=== PATIENT | male | born 1960 | race Caucasian/White ===

== ENCOUNTER → 2016-03-11 | Outpatient (CLI) | payer BC ==
[2016-03-11 16:19] VITALS: BP 163/94; PULSE 71; RESP 16; TEMP 96.6; BMI 54.3
--- NOTE | 2016-03-29 17:20 | P.PN ---
Progress Note - Text DATE OF SERVICE: 03/11/2016 CHIEF COMPLAINT: Bariatric assessment. HISTORY OF PRESENT ILLNESS: Agnieszka Marquez is a 55-year-old gentleman who initially presented to the bariatric program in December 2015. At his height of 6 feet and 1/4 inch he came in weighing 399 pounds. Today, he is now up to 402 pounds. His body mass index is 54.3. He has undergone evaluation with his medical provider. He has multiple comorbidities, including obstructive sleep apnea, heart disease, hypertension, osteoarthritis of the bilateral legs including neuropathy secondary to his morbid obesity. The [place] bariatric surgical collaborative was reviewed in detail for which he has elected for a sleeve gastrectomy. He had completed an upper endoscopy consistent with Hill grade 4 lower esophageal valve include 4 cm diaphragmatic hiatal hernia. He now presents for further evaluation for surgical procedures. PAST MEDICAL HISTORY: 1. Morbid obesity. 2. Hypertension. 3. Neuropathy. 4. Gastroesophageal reflux disease. 5. Obstructive sleep apnea. 6. Bilateral lower extremity edema. 7. Osteoarthritis of the lower back. PAST SURGICAL HISTORY: 1. Right knee arthroscopy. 2. Upper endoscopy. MEDICATIONS: 1. Norvasc. 2. Lyrica. 3. Protonix. 4. Losartan-hydrochlorothiazide. 5. Lasix. ALLERGIES: Denies. SOCIAL HISTORY: Lifelong nontobacco user. Prior history of alcoholism. FAMILY HISTORY: Pertinent for morbid obesity. REVIEW OF SYSTEMS: CONSTITUTIONAL: [place] body weight of 183 pounds. Present weight of 402 pounds. Body mass index of 54.3. NEURO: No reports of stroke or seizure disorder. He has bilateral neuropathy with increase of Lyrica to at least 200 mg daily. GASTROINTESTINAL: History of gastroesophageal reflux disease including diaphragmatic hiatal hernia which is cautiously reviewed with the patient regarding bariatric options. HEENT: No reports of troubles with vision or hearing. No reports of dysphagia. No reports of diabetes. No reports of thyroid disorder. RESPIRATORY: History of obstructive sleep apnea. No recent asthma. CARDIOVASCULAR: History of hypertension. He has history of hypercholesterolemia. MUSCULOSKELETAL: Osteoarthritis of the lower back and legs. He also has bilateral lower extremity edema, right greater left. PSYCH: No reports of depression or suicidal ideation. HEMATOLOGIC: No reports of easy bruising or bleeding. PHYSICAL EXAM: VITAL SIGNS: 96.6, 71, 16, 163/94, 6 foot and 1/4 inch, 402 pounds. Body mass index 54.3. GENERAL: Well-developed male in no acute distress. HEENT: No scleral icterus. Extraocular movements grossly intact. Moist mucosa. NECK: Supple without lymphadenopathy. CHEST: Nonlabored respirations with equal bilateral excursions. CARDIOVASCULAR: Regular rate and rhythm. ABDOMEN: Soft, nontender, nondistended. MUSCULOSKELETAL: Has right lower extremity edema 1+. Trace pitting edema of left leg. NEURO: No focal or lateralizing signs. Cranial nerves II through XII grossly within normal limits. PSYCH: Appropriate affect. Alert and oriented to person, place, and time. ASSESSMENT: 1. Morbid obesity due to excess calories. 2. Body mass index of 54.3. 3. Right lower extremity edema. 4. Bilateral lower extremity neuropathy. 5. Obstructive sleep apnea. 6. Hypertension. 7. Prior history of alcoholism. 8. Gastroesophageal reflux disease. 9. Dietary counseling. 10. Diaphragmatic hiatal hernia. PLAN: 1. I have gone over benefits and risks versus surgical intervention for which he has elected for a sleeve gastrectomy. 2. A second generation bariatric consent form was reviewed in detail including potential for leaks, gastric stenosis and severe gastroesophageal disease postoperatively. Medical management with antacids were also reviewed including potential corrective surgical procedure which he demonstrated understanding. 3. Recommend 2-week high protein, low-caloric diet to address underlying hepatomegaly. 4. Inpatient hospitalization anticipated for approximately 2 nights. 5. Deep venous thrombosis prophylaxis. 6. Antibiotic prophylaxis. 7. Postoperative recovery at minimum for 4 weeks was described to the patient. He demonstrated understanding. 8. Will need CPAP machine while admitted.
== END | disposition home or self-care (01) ==
LOC: BARWHC3 14:56
PROVIDERS: ATTEND Surgery Plastic and Reconstructive Surgery
DX: Z01.818 Encounter for other preprocedural examination (principal); E66.01 Morbid (severe) obesity due to excess calories; Z68.43 Body mass index [BMI] 50.0-59.9, adult; G47.33 Obstructive sleep apnea (adult) (pediatric); K21.9 Gastro-esophageal reflux disease without esophagitis; K44.9 Diaphragmatic hernia without obstruction or gangrene; Z79.899 Other long term (current) drug therapy
CPT/HCPCS: 99211

== ENCOUNTER → 2016-03-16 | Outpatient (CLI) | payer BC ==
[2016-03-16 13:04] VITALS: BMI 53.1
== END | disposition home or self-care (01) ==
LOC: BARWHC3 08:53
PROVIDERS: ATTEND Surgery Plastic and Reconstructive Surgery
DX: E66.01 Morbid (severe) obesity due to excess calories (principal); Z71.3 Dietary counseling and surveillance
CPT/HCPCS: 97804

== ENCOUNTER → 2016-03-30 | Outpatient (CLI) | payer BC ==
[2016-03-30 15:50] LABS: Basophils # (A) 0.1 k/uL (0-0.2); Basophils % (A) 1 %; CHCM 34.8; Eosinophils # (A) 0.1 k/uL (0-0.7); Eosinophils % (A) 1 %; HCT 45.5 % (39.0-53.0); HDW 2.86; HGB 15.3 gm/dL (13.0-17.5); Luc # (Auto) 0.34; Luc % (Auto) 3; Lymphocytes # (A) 2.4 k/uL (1.0-4.8); Lymphocytes % (A) 22 %; MCHC 33.5 g/dL (31.0-37.0); MCV 86.5 fL (80.0-100.0); Monocytes # (A) 0.8 k/uL (0-1.0); Monocytes % (A) 7 %; Neutrophils # (A) 7.2 k/uL (1.3-7.7); Neutrophils % (A) 67 %; RBC 5.26 m/uL (4.30-5.90); RDW 13.4 % (11.5-15.5); WBC 10.8 k/uL (3.8-10.6); WBC (Perox) 10.39
[2016-03-30 16:01] LABS: ALT 44 U/L (21-72); AST 24 U/L (17-59); Alkaline Phosphatase 91 U/L (38-126); Anion Gap 14 mmol/L; Blood Urea Nitrogen 28 mg/dL (9-20); Calcium 10.4 mg/dL (8.4-10.2); Carbon Dioxide 28 mmol/L (22-30); Chloride 98 mmol/L (98-107); Glucose 106 mg/dL (74-99); Non-African American GFR(MDRD) >60 (>60 ml/min/1.73 sqM); Potassium 4.4 mmol/L (3.5-5.1); Sodium 140 mmol/L (137-145); Total Protein 8.6 g/dL (6.3-8.2)
== END | disposition home or self-care (01) ==
LOC: LABWHC1 15:22
PROVIDERS: ATTEND Surgery Plastic and Reconstructive Surgery
DX: Z01.812 Encounter for preprocedural laboratory examination (principal)
CPT/HCPCS: 36415; 80053; 85025

== ENCOUNTER 2016-04-06 11:10 | Inpatient (IN) | payer BC ==
--- NOTE | 2016-04-06 06:28 | P.GSHP ---
History of Present Illness H&P Date: 04/06/16 CHIEF COMPLAINT: Bariatric assessment. HISTORY OF PRESENT ILLNESS: Agnieszka Marquez is a 55-year-old gentleman who initially presented to the bariatric program in December 2015. At his height of 6 feet and 1/4 inch he came in weighing 399 pounds. Today, he is now up to 402 pounds. His body mass index is 53.4. He has undergone evaluation with his medical provider. He has multiple comorbidities, including obstructive sleep apnea, heart disease, hypertension, osteoarthritis of the bilateral legs including neuropathy secondary to his morbid obesity. The [place] bariatric surgical collaborative was reviewed in detail for which he has elected for a sleeve gastrectomy. He had completed an upper endoscopy consistent with Hill grade 4 lower esophageal valve including 4 cm diaphragmatic hiatal hernia. He now presents for surgical intervention. PAST MEDICAL HISTORY: 1. Morbid obesity. 2. Hypertension. 3. Neuropathy. 4. Gastroesophageal reflux disease. 5. Obstructive sleep apnea. 6. Bilateral lower extremity edema. 7. Osteoarthritis of the lower back. PAST SURGICAL HISTORY: 1. Right knee arthroscopy. 2. Upper endoscopy. MEDICATIONS: 1. Norvasc. 2. Lyrica. 3. Protonix. 4. Losartan-hydrochlorothiazide. 5. Lasix. ALLERGIES: Denies. SOCIAL HISTORY: Lifelong nontobacco user. Prior history of alcoholism. FAMILY HISTORY: Pertinent for morbid obesity. REVIEW OF SYSTEMS: CONSTITUTIONAL: [place] body weight of 183 pounds. Present weight of 402 pounds. Body mass index of 53.4. NEURO: No reports of stroke or seizure disorder. He has bilateral neuropathy with increase of Lyrica to at least 200 mg daily. GASTROINTESTINAL: History of gastroesophageal reflux disease including diaphragmatic hiatal hernia which is cautiously reviewed with the patient regarding bariatric options. HEENT: No reports of troubles with vision or hearing. No reports of dysphagia. No reports of diabetes. No reports of thyroid disorder. RESPIRATORY: History of obstructive sleep apnea. No recent asthma. CARDIOVASCULAR: History of hypertension. He has history of hypercholesterolemia. MUSCULOSKELETAL: Osteoarthritis of the lower back and legs. He also has bilateral lower extremity edema, right greater left. PSYCH: No reports of depression or suicidal ideation. HEMATOLOGIC: No reports of easy bruising or bleeding. PHYSICAL EXAM: VITAL SIGNS: 96.6, 71, 16, 163/94, 6 foot and 1/4 inch, 402 pounds. Body mass index 53.4 GENERAL: Well-developed male in no acute distress. HEENT: No scleral icterus. Extraocular movements grossly intact. Moist mucosa. NECK: Supple without lymphadenopathy. CHEST: Nonlabored respirations with equal bilateral excursions. CARDIOVASCULAR: Regular rate and rhythm. ABDOMEN: Soft, nontender, nondistended. MUSCULOSKELETAL: Has right lower extremity edema 1+. Trace pitting edema of left leg. NEURO: No focal or lateralizing signs. Cranial nerves II through XII grossly within normal limits. PSYCH: Appropriate affect. Alert and oriented to person, place, and time. ASSESSMENT: 1. Morbid obesity due to excess calories. 2. Body mass index of 53.4. 3. Right lower extremity edema. 4. Bilateral lower extremity neuropathy. 5. Obstructive sleep apnea. 6. Hypertension. 7. Prior history of alcoholism. 8. Gastroesophageal reflux disease. 9. Dietary counseling. 10. Diaphragmatic hiatal hernia. PLAN: 1. I have gone over benefits and risks of all surgical procedures including, gastric bypass, sleeve, band for surgical intervention for which he has elected for a sleeve gastrectomy. 2. A second generation bariatric consent form was reviewed in detail including potential for leaks, gastric stenosis and severe gastroesophageal reflux disease postoperatively. Medical management with antacids were also reviewed including potential corrective surgical procedure which he demonstrated understanding. 3. Recommend 2-week high protein, low-caloric diet to address underlying hepatomegaly. 4. Inpatient hospitalization anticipated for approximately 2 nights. 5. Deep venous thrombosis prophylaxis. 6. Antibiotic prophylaxis. 7. Postoperative recovery at minimum for 4 weeks was described to the patient. He demonstrated understanding. 8. Will need CPAP machine while admitted. Past Medical History Past Medical History: GERD/Reflux, Hypertension, Neurologic Disorder, Sleep Apnea/CPAP/BIPAP Additional Past Medical History / Comment(s): neuropathy of feet, heart [place], small hiatal hernia, History of Any Multi-Drug Resistant Organisms: MRSA Date of last positivie culture/infection: 1996 approx MDRO Source:: under rt arm Past Surgical History: Orthopedic Surgery, Tonsillectomy Additional Past Surgical History / Comment(s): right knee arthroscopy, ganglion cyst rt wrist Past Anesthesia/Blood Transfusion Reactions: Family History of Problems w/ Anesthesia Additional Past Anesthesia/Blood Transfusion Reaction / Comment(s): mother has diff coming out Past Psychological History: No Psychological Hx Reported Smoking Status: Never smoker Past Alcohol Use History: None Reported Past Drug Use History: None Reported - Past Family History Mother Family Medical History: No Reported History Father Family Medical History: No Reported History Medications and Allergies Home Medications Medication Instructions Recorded Confirmed Type Losartan/Hydrochlorothiazide 1 each PO QAM 01/14/16 03/31/16 History [Losartan-Hctz 100-25 mg Tab] Pantoprazole Sodium [Protonix] 40 mg PO DAILY 01/14/16 03/31/16 History Pregabalin [Lyrica] 100 mg PO TID 01/14/16 03/31/16 History amLODIPine [Norvasc] 2.5 mg PO QAM 01/14/16 03/31/16 History Allergies Allergy/AdvReac Type Severity Reaction Status Date / Time No Known Allergies Allergy Verified 03/31/16 09:25
[~2016-04-06 11:10] MED LIST: ACETAMINOPHEN IV (For NPO) 1,000 MG in EMPTY BAG 1 BAG IVPB ONE; BUPIVACAINE LIPOSOME/PF 1.3% 20 ML, BUPIVACAIN-EPI 0.5%-1:200,000 25 ML, SODIUM CHLORID... MISCELLANE ONE; CHLORHEXIDINE GLUCONATE 15 ML CUP MUCOUS MEM ONE; DEXAMETHASONE SOD PHOSPHATE 10 MG/ML 1 ML VIAL IV ONE; ENOXAPARIN 40 MG/0.4 ML SYRINGE SQ STA; LIDOCAINE 1% 20 ML VIAL (10MG/ML) FOR IV START INTRADERMA PRN; ONDANSETRON 4 MG/2 ML VIAL IVP ONE; PANTOPRAZOLE 40 MG/10 ML VIAL IV STA; SCOPOLAMINE 1.5MG/72HR PATCH TRANSDERM ONE; ceFAZolin 3 GM in SODIUM CHLORIDE 0.9% 100 ML IVPB ONE
[2016-04-06 11:32] VITALS: RESP 16
[2016-04-06] MEDS: LACTATED RINGERS 1,000 ML IV SCH ×2 (11:33→19:13)
[2016-04-06] MEDS ORDERED: DEXAMETHASONE SOD PHOSPHATE 10 MG/ML 1 ML VIAL IV ONE (11:36)
[2016-04-06] MEDS ORDERED: ONDANSETRON 4 MG/2 ML VIAL IVP ONE (11:37)
[2016-04-06] MEDS ORDERED: CHLORHEXIDINE GLUCONATE 15 ML CUP MUCOUS MEM ONE (11:58)
[2016-04-06] MEDS ORDERED: MIDAZOLAM 2 MG/2 ML VIAL IV ONE (12:25)
[2016-04-06] MEDS ORDERED: LIDOCAINE 1% INJ 10MG/ML (20 ML MDV) ONE (14:42)
[2016-04-06] MEDS ORDERED: KETOROLAC 30 MG/ML 1 ML VIAL ONE (14:42)
[2016-04-06] MEDS ORDERED: HYDROmorphone (PF) 1 MG/ML ONE (14:42)
[2016-04-06] MEDS ORDERED: fentaNYL (PF) 50 MCG/ML 2 ML AMP ONE (14:42)
[2016-04-06] MEDS ORDERED: PROPOFOL 10 MG/ML 20 ML VIAL IV ONE (14:42)
[2016-04-06] MEDS ORDERED: ROCURONIUM BROMIDE 10 MG/ML 10 ML VIAL IV ONE (14:42)
[2016-04-06] MEDS ORDERED: GLYCOPYRROLATE 0.2 MG/ML 2 ML VIAL ONE (14:42)
[2016-04-06] MEDS ORDERED: NEOSTIGMINE 1 MG/ML 10 ML VIAL ONE (14:42)
[2016-04-06] MEDS ORDERED: SUCCINYLCHOLINE CHLORIDE 100 MG/5 ML SYR IV ONE (14:42)
[2016-04-06] MEDS ORDERED: MIDAZOLAM 2 MG/2 ML VIAL ONE (14:42)
[2016-04-06] MEDS ORDERED: LACTATED RINGERS 1,000 ML IV ONE (15:52)
[2016-04-06] MEDS ORDERED: ONDANSETRON 4 MG/2 ML VIAL IVP PRN (17:24)
[2016-04-06] MEDS ORDERED: NALOXONE 0.4 MG/ML 1 ML VIAL IV PRN (17:24)
[2016-04-06] MEDS ORDERED: SIMETHICONE 40 MG/0.6 ML DROPS 2,000 MG/30 ML BOTTLE PO PRN (17:24)
[2016-04-06] MEDS ORDERED: HYOSCYAMINE ORAL DROPS 1.875 MG/15 ML BOTTLE PO PRN (17:24)
[2016-04-06] MEDS ORDERED: diphenhydrAMINE 50 MG/ML 1 ML VIAL IVP PRN (17:24)
--- NOTE | 2016-04-06 17:24 | P.PCN ---
Date of Procedure: 04/06/16 Preoperative Diagnosis: Morbid obesity Postoperative Diagnosis: Morbid obesity Procedure(s) Performed: Laparoscopic sleeve gastrectomy, intraoperative esophagogastroduodenoscopy Anesthesia: GETA, local Surgeon: Araseli Cheng Estimated Blood Loss (ml): 25 Pathology: other (Sleeve gastrectomy) Condition: stable Disposition: floor Operative Findings: No prominent hiatal defects along anterior-posterior hiatus. Staple used to include 60 mm 3 black loads, 2 purple loads, and 1 - 45 bautista load. Intraoperative EGD confirmed no leak or encroachment along the angularis incisura.
[2016-04-06] MEDS: HYDROmorphone 1 MG/ML 1 ML SYRINGE IVP PRN ×3 (17:55→21:46)
[2016-04-06] MEDS ORDERED: ACETAMINOPHEN IV (For NPO) 1,000 MG in EMPTY BAG 1 BAG IVPB ONE (18:00)
[2016-04-06 19:18] VITALS: BMI 51.6
[2016-04-06] MEDS: 0.9% NACL WITH KCL 20 MEQ/L 1,000 ML IV SCH ×2 (19:22→23:22)
[2016-04-06] MEDS: ALBUTEROL NEBULIZED 2.5 MG/3 ML INHALATION SCH (20:36)
[2016-04-07] MEDS: HYDROcodone/APAP 15 ML SOLUTION PO PRN ×3 (01:53→14:34)
[2016-04-07] MEDS: HYDROmorphone 1 MG/ML 1 ML SYRINGE IVP PRN (05:46)
[2016-04-07] MEDS ORDERED: 1: MVI, ADULT NO.4 WITH VIT K 10 ML, THIAMINE 100 MG, FOLIC ACID 1 MG, POTASSIUM CHLORID IV SCH ×6 (08:00)
[2016-04-07 08:58] LABS: Basophils % (A) 0 %; CH 30.2; CHCM 34.6; Eosinophils % (A) 0 %; HCT 36.8 % (39.0-53.0); HDW 2.73; HGB 12.5 gm/dL (13.0-17.5); Luc # (Auto) 0.24; Luc % (Auto) 2; Lymphocytes # (A) 0.9 k/uL (1.0-4.8); Lymphocytes % (A) 8 %; MCH 29.6 pg (25.0-35.0); MCHC 33.9 g/dL (31.0-37.0); MCV 87.4 fL (80.0-100.0); Mean Platelet Volume 7.4; Monocytes # (A) 0.6 k/uL (0-1.0); Monocytes % (A) 5 %; Neutrophils # (A) 9.8 k/uL (1.3-7.7); Neutrophils % (A) 85 %; RBC 4.21 m/uL (4.30-5.90); RDW 12.8 % (11.5-15.5); WBC 11.6 k/uL (3.8-10.6); WBC (Perox) 12.33
[2016-04-07] MEDS ORDERED: amLODIPine 2.5 MG TAB PO SCH (09:00)
[2016-04-07] MEDS ORDERED: ENOXAPARIN 60 MG/0.6 ML SYRINGE SQ SCH (09:00)
[2016-04-07] MEDS ORDERED: LOSARTAN-HCTZ 50-12.5 MG 1 EACH TAB PO SCH (09:00)
[2016-04-07] MEDS ORDERED: PANTOPRAZOLE 40 MG/10 ML VIAL IV SCH (09:00)
[2016-04-07 09:04] LABS: Anion Gap 12 mmol/L; Blood Urea Nitrogen 36 mg/dL (9-20); Carbon Dioxide 27 mmol/L (22-30); Chloride 102 mmol/L (98-107); Magnesium 2.2 mg/dL (1.6-2.3); Non-African American GFR(MDRD) 55 (>60 ml/min/1.73 sqM); Phosphorous 4.9 mg/dL (2.5-4.5); Potassium 4.5 mmol/L (3.5-5.1); Sodium 141 mmol/L (137-145)
[2016-04-07] MEDS: ALBUTEROL NEBULIZED 2.5 MG/3 ML INHALATION SCH ×3 (09:26→15:57)
--- NOTE | 2016-04-07 09:31 | P.PN ---
Subjective Principal diagnosis: Morbid obesity The patient is postop day 1 status post sleeve gastrectomy. He is doing well. He is tolerating meds. No reports of nausea and vomiting. No reports of fevers or chills. Also he is tolerating diet. Objective - Vital Signs Vital signs: Vital Signs Temp 98.7 F 04/07/16 08:06 Pulse 78 04/07/16 08:06 Resp 16 04/07/16 08:06 BP 143/82 04/07/16 08:06 Pulse Ox 92 L 04/07/16 08:06 Intake & Output 04/06/16 04/07/16 04/07/16 18:59 06:59 18:59 Intake Total 1750 Output Total 25 1050 Balance 1725 -1050 Weight 175.1 kg 175.1 kg Intake: IV 1750 Output: Urine 1050 Estimated Blood Loss 25 Other: Voiding Method Toilet Urinal # Voids 2 - Exam GENERAL: Well developed and in no acute distress. Pleasant. HEENT: No sclera icterus. Extraocular movements grossly intact. Moist buccal mucosa. Head is atraumatic, normocephalic. Hears conversational speech. No nasal drainage. NECK: Supple without lymphadenopathy. No JV distention. CHEST: Non-labored respirations and equal bilateral excursions. CARDIOVASCULAR: Regular rate and rhythm. Palpable 2+ radial pulses. ABDOMEN: Soft. Dressings clean dry and intact. Minimal abdominal tenderness along the incision, right upper quadrant. MUSCULOSKELETAL: No clubbing, cyanosis. NEUROLOGIC: No focal or lateralizing signs. PSYCH: Appropriate affect. Alert and oriented to person, place and time. - Labs CBC & Chem 7: 04/07/16 07:55 04/07/16 07:55 Labs: Abnormal Lab Results - Last 24 Hours (Table) 04/07/16 04/07/16 Range/Units 07:55 07:55 WBC 11.6 H (3.8-10.6) k/uL RBC 4.21 L (4.30-5.90) m/uL Hgb 12.5 L (13.0-17.5) gm/dL Hct 36.8 L (39.0-53.0) % Neutrophils # 9.8 H (1.3-7.7) k/uL Lymphocytes # 0.9 L (1.0-4.8) k/uL BUN 36 H (9-20) mg/dL Creatinine 1.33 H (0.66-1.25) mg/dL Phosphorus 4.9 H (2.5-4.5) mg/dL Assessment and Plan (1) BMI 50.0-59.9, adult Status: Chronic (2) Gastroesophageal reflux disease Status: Chronic (3) S/P laparoscopic sleeve gastrectomy Status: Acute (4) Sleep apnea Status: Chronic (5) Hypertension Status: Chronic (6) Hypertensive heart disease Status: Chronic (7) Morbid obesity Status: Chronic Plan: 1. He is doing well. He may be discharged home. 2. Discharge bariatric diet including medical reconciliation was completed. 3. Follow-up at the bariatric center in 2 - 4 days.
[2016-04-07] MEDS: 0.9% NACL WITH KCL 20 MEQ/L 1,000 ML IV SCH (11:29)
[2016-04-07 14:30] VITALS: BP 121/72; PULSE 72; TEMP 98
[2016-04-07] MEDS ORDERED: PREGABALIN 100 MG CAP PO SCH (16:00)
[2016-04-08] MEDS ORDERED: BISACODYL 5 MG TABLET.DR PO PRN (08:00)
--- NOTE | 2016-04-08 09:16 | P.DS ---
Providers Date of admission: 04/06/16 11:10 Expected date of discharge: 04/07/16 Attending physician: Araseli Cheng Primary care physician: Antwan Akhtar - Discharge Diagnosis(es) (1) S/P laparoscopic sleeve gastrectomy Status: Acute (2) BMI 50.0-59.9, adult Status: Chronic (3) Gastroesophageal reflux disease Status: Chronic (4) Hypertension Status: Chronic (5) Hypertensive heart disease Status: Chronic (6) Morbid obesity Status: Chronic (7) Sleep apnea Status: Chronic Hospital Course: The patient was admitted for morbid obesity surgery. He completed a bariatric evaluation. He elected for a sleeve gastrectomy. Postoperatively, he was tolerating diet. His pain was well-controlled. Discharge bariatric instructions including diet were reviewed. He was stable prior to discharge. Follow-up in bariatric center in 4 days. Pertinent Studies: None. Procedures: 1. Laparoscopic sleeve gastrectomy. 2. Intraoperative esophagogastroduodenoscopy. Patient Condition at Discharge: Stable Plan - Discharge Summary New Discharge Prescriptions: HYDROcodone/APAP 5-325MG [[place] 5-325] 1 - 2 tab PO Q6HR PRN #60 tab PRN Reason: Pain Discharge Medication List Pantoprazole Sodium [Protonix] 40 mg PO DAILY 01/14/16 [History] amLODIPine [Norvasc] 2.5 mg PO QAM 01/14/16 [History] Pregabalin [Lyrica] 100 mg PO TID 04/06/16 [History] HYDROcodone/APAP 5-325MG [[place] 5-325] 1 - 2 tab PO Q6HR PRN #60 tab 04/07/16 [ Rx] Pregabalin [Lyrica] 100 mg PO BID #60 cap 04/09/16 [Rx] Follow up Appointment(s)/Referral(s): Araseli Cheng MD [STAFF PHYSICIAN] - 04/09/16 10:30 am (Bariatric ) Patient Instructions/Handouts: Hydrocodone/Acetaminophen (By mouth), Laparoscopic Gastrectomy (DC), Nutrition after Bariatric Surgery (GEN) Activity/Diet/Wound Care/Special Instructions: No lifting over 4 pounds in 4 weeks. Liquid diet until seen by your surgeon. May shower. Dressing to be removed in the office. Your Losartan/HCTZ has been discontinued. Please stay hydrated. Discharge Disposition: HOME SELF-CARE
--- NOTE | 2016-04-13 18:19 | P.OP ---
Date of Procedure: 04/06/16 Description of Procedure: SURGEON: BYRON GODWIN MD SENIOR RUBY DEVELOPER: CHRISTO NUNES. PREOPERATIVE DIAGNOSIS: 1. Morbid obesity due to excess calories. 2. Body mass index of 53.9 down to 51.6. 3. Right lower extremity edema. 4. Bilateral lower extremity neuropathy. 5. Obstructive sleep apnea. 6. Hypertension. 7. Prior history of alcoholism. 8. Gastroesophageal reflux disease. 9. Dietary counseling. 10. Diaphragmatic hiatal hernia. POSTOPERATIVE DIAGNOSIS: 1. Morbid obesity due to excess calories. 2. Body mass index of 53.9 down to 51.6. 3. Right lower extremity edema. 4. Bilateral lower extremity neuropathy. 5. Obstructive sleep apnea. 6. Hypertension. 7. Prior history of alcoholism. 8. Gastroesophageal reflux disease. 9. Dietary counseling. 10. Diaphragmatic hiatal hernia. 11. Hepatomegaly. PROCEDURES PERFORMED: 1. Laparoscopic vertical sleeve gastrectomy with 34 Kosovan bougie. 2. Intraoperative esophagogastroduodenoscopy. 3. Peritoneal block using Exparel. 4. Application of Optifoam dressing. ANESTHESIA: General with 85 mL Exparel with Sensorcaine and normal saline mixture ESTIMATED BLOOD LOSS: 25 mL. SPECIMENS: Sleeve gastrectomy. COMPLICATIONS: None. INDICATIONS: Agnieszka Marquez is a 55-year-old gentleman who initially presented to the bariatric program in December 2015. At his height of 6 feet and 1/4 inch he was to 402 pounds. His body mass index was 53.9. He has undergone evaluation with his medical provider. He has multiple comorbidities, including obstructive sleep apnea, heart disease, hypertension, osteoarthritis of the bilateral legs including neuropathy secondary to his morbid obesity. The [place] [facility]ariat[facility] surgical collaborative was reviewed in detail for which he has elected for a sleeve gastrectomy. He has lost 17 pounds with medical supervised weight loss. All surgical options for morbid obesity had been described using the [place] [facility]ariat[facility] surgery collaborative comorbidity resolution including complication risk score. A second-generation bariatric consent form was described in detail including the possibility of worsened reflux disease postoperatively, for which he demonstrated understanding. Benefits and risks of the procedure were described at length. Informed consent was obtained. DESCRIPTION: Preoperatively, he had received Peridex 15 mL oral solution as well as Lovenox 40 mg subcutaneously. The patient had previously voided. He was brought into the operating room and laid on a split leg table. After general induction, the abdomen was prepped and draped in a standard sterile fashion using ChloraPrep including Ioban draping. Prior to incision, a time-out protocol was confirmed with surgical team including the patient's name, procedure to be performed, as well as preoperative medications. The xiphoid to umbilicus was measured to be approximately 36 cm for her 6 foot, 0.5 inch frame. A 5 mm incision was made at approximately 15 cm from the xiphoid and off to the left of midline. A 0 degree, 5 mm laparoscopic trocar entry was performed and entered into the peritoneal cavity. The abdomen was insufflated to 15 mmHg of pressure, which he tolerated well. Diagnostic laparoscopy confirmed no injury to bowel, viscera, or mesentery upon entry. The liver edge was round consistent with hepatomegaly despite 2 week high-protein low caloric diet. Next, a 5 mm port was placed along the left anterior axillary line at the level of the left costal margin. Equidistant at the left midclavicular line, a 5 mm trocar was also placed at the left upper abdomen also under direct visualization. Another 5 mm port was placed along the left upper quadrant for additional camera view. The patient was placed in reverse Trendelenburg position once a medium Doc liver retractor was used to elevate the left lobe of the liver and held in place using an iron supervisor international reservations. No large hiatal defect was found anteriorly or posteriorly. Using a ruler, the pylorus was identified then, 6 cm proximally along the greater curvature of the stomach, the area was marked. The short gastrics were mobilized upwards to the angle of His. Moderate adhesions were found along the retrogastric space. Bleeding along the right gastric artery was controlled using large 12 mm clip zinc miner. The 5 mm ports were exchanged for 12 mm ports. Next, the upper pole of the stomach was adherent to the left osvaldo, which was gently dissected free using a fenestrated grasper. The epigastric port site was exchanged for a 15 mm trocar. I went to the head of the bed for placement of the bougie including intraoperative esophagogastroduodenoscopy. The Olympus colonoscope was passed along the posterior oropharynx. Along the distal esophagus no erosive esophagitis was encountered. The first through third portion of duodenum was unremarkable. Bile was aspirated from the stomach. No foreign body was found along the upper esophagus or along the posterior oropharynx. No acute gastric ulcers were found. Early gastritis was confirmed. The scope was laid along the distal aspect of the antrum and desufflated to allow for preparation of the sleeve gastrectomy. No endoscopic evidence of a large hiatal hernia was found. Final placement of the pediatric colonoscope was along the antrum for a 34 Kosovan bougie. A [employer] Tri Stapler tissue reinforced 60 mm black load was fired initially along the antrum at the marking point, 6 cm proximal to the pylorus via a 15 mm port. In a similar direction, a total of 6 staplers, 3 - 60 mm tissue reinforced black loads, 2 - 60 mm tissue reinforced purple loads, and 1 - 45 mm bautista naked load were fired towards the angle of His. The staple line was completely hemostatic and linear without corkscrewing. Hemostasis was excellent. The space from the angularis incisura of the sleeve was 4 cm. I then went to the head of the bed to perform the intraoperative esophagogastroduodenoscopy leak test. The patient had been leveled. The upper pole of the stomach was bathed using normal saline solution. The scope was withdrawn with careful inspection along the staple line for which no leaks were found along the entire length. Additionally, the sleeve was completely hemostatic without any encroachment along the angularis incisura. Its topology was a soft "J" contour. The GE junction was found to lay within the abdominal cavity below the hiatus. No stricture was encountered upon placement of the scope. An intraoperative leak test was performed as the entire length of the staple line was irrigated using normal saline. No leaks were encountered along the staple line. The GI tract was desufflated. The patient tolerated this portion of the procedure well. The scope was completely withdrawn. Tisseel fibrin sealant was placed along the entire staple length. Once dried the Doc liver retractor was removed. Attention was now brought to removal of the specimen. The distal end of the sleeve gastrectomy specimen was brought out through the 15 mm port site. The specimen was gently removed en total, corresponding to 23 cm x 6 cm sleeve gastrectomy specimen. No contamination had occurred during this process. The fascial defect of the 15 mm port site was oversewn using 0 Vicryl using a Bright Pringle device. The fascial defect was air tight. The 15 mm port site was irrigated with 3 L of warm normal saline solution. All instruments and pneumoperitoneum including irrigation fluid was removed from the abdominal cavity. 3-0 Vicryl was used to reapproximate the 15 mm port site. The final incisions were closed using subcuticular running suture of 4-0 Monocryl. Exparel with Sensorcaine and normal saline mixture of 85 mL was infiltrated to all wounds for postop analgesia. Dermabond was applied to the skin once the skin had been cleansed. OptiFoam dressing was placed along the epigastric 15 mm port site and left lateral port incision. At the end of the procedure, needle, sponge, and instrument count was verified correct by the emergency vehicle technician. The patient was taken to the postanesthesia care unit in stable condition. Intraoperative films were reviewed and discussed with the patient's family, who were pleased with the level of care. Skin to skin time for the procedure was 130 minutes. FINDINGS: 1. Hepatomegaly adding complexity to this case by 45 minutes. 2. No prominent hiatal defects along anterior-posterior hiatus. 3. Total of 6 jake [employer] tri-staplers used to create sleeve gastrectomy including tissue reinforced 3 - 60 mm black loads, 2 - 60 mm purple loads, and 1 - 45 mm naked bautista load. 4. Negative esophagogastroduodenoscopy leak test. 5. ASA-3. 6. Thoracic length of 36 cm.
== END 2016-04-07 17:01 | disposition home or self-care (01) | DRG 621 ==
LOC: 2ORWHC 11:10 → 3SUR 17:26
PROVIDERS: ADMIT Surgery Plastic and Reconstructive Surgery; ATTEND Surgery Plastic and Reconstructive Surgery
PROC: 0DJ08ZZ Inspection of Upper Intestinal Tract, Via Natural or Artificial Opening Endoscopic (ICD-10-PCS; principal; 2016-04-06 12:35)
PROC: 0DB64Z3 Excision of Stomach, Percutaneous Endoscopic Approach, Vertical (ICD-10-PCS; principal; 2016-04-06 12:35)
DX: E66.01 Morbid (severe) obesity due to excess calories (principal); G62.9 Polyneuropathy, unspecified; I11.9 Hypertensive heart disease without heart failure; G47.33 Obstructive sleep apnea (adult) (pediatric); G57.93 Unspecified mononeuropathy of bilateral lower limbs; Z68.43 Body mass index [BMI] 50.0-59.9, adult; K21.9 Gastro-esophageal reflux disease without esophagitis; K44.9 Diaphragmatic hernia without obstruction or gangrene; M19.90 Unspecified osteoarthritis, unspecified site; Z79.899 Other long term (current) drug therapy; K29.70 Gastritis, unspecified, without bleeding
CPT/HCPCS: 80051; 82310; 82565; 83735; 84100; 84520; 85025; 88307; 94640; 94760; 94762

== ENCOUNTER → 2016-04-09 | Outpatient (CLI) | payer BC ==
[2016-04-09 11:37] VITALS: BP 139/98; PULSE 71; TEMP 98.5; BMI 51.8
[2016-04-09 12:27] LABS: ALT 194 U/L (21-72); AST 88 U/L (17-59); Alkaline Phosphatase 84 U/L (38-126); Anion Gap 13 mmol/L; Blood Urea Nitrogen 18 mg/dL (9-20); Calcium 9.7 mg/dL (8.4-10.2); Carbon Dioxide 29 mmol/L (22-30); Chloride 97 mmol/L (98-107); Glucose 106 mg/dL (74-99); Non-African American GFR(MDRD) >60 (>60 ml/min/1.73 sqM); Potassium 4.4 mmol/L (3.5-5.1); Sodium 139 mmol/L (137-145); Total Bilirubin 0.8 mg/dL (0.2-1.3); Total Protein 7.3 g/dL (6.3-8.2)
--- NOTE | 2016-04-12 19:10 | P.PN ---
Progress Note - Text DATE OF SERVICE: 04/09/2016 CHIEF COMPLAINT: Follow-up sleeve gastrectomy. HISTORY OF PRESENT ILLNESS: Agnieszka Marquez is a 55-year-old gentleman who is status post sleeve gastrectomy on 2016. He is now postop day number three. No reports of nausea and vomiting. He finally is forthcoming that he had severe bilateral joints swelling including of the bilateral feet, toes and ankles prior to his procedure. He had withheld this information as he did not want surgery to be discontinued. Incidentally, he has been off his Lyrica unintentional as his prescription has not been refilled. He is concerned about underlying gout as he reported swelling including of his toes. Separately he is tolerating liquids. At his height of 6 feet 1/4 inches ideal body weight is 183 pounds. His initial weight was 402 pounds. Today he comes in weighing 384 pounds. He has already lost 18 pounds. Body mass index is reduced from 54.3 down to 51.9. PHYSICAL EXAM: VITAL SIGNS: 98.5, 71, 139/98, 16, 6 feet and 1/4 inches, weight of 384 pounds. Body mass index 51.9. GENERAL: Well-developed male in no acute distress. ABDOMEN: Soft. All incisions intact without signs of cellulitis or infection. HEENT: No scleral icterus. Extraocular movements grossly intact. Moist mucosa. NECK: Supple without lymphadenopathy. CHEST: Nonlabored respirations with equal bilateral excursions. CARDIOVASCULAR: Regular rate and rhythm. MUSCULOSKELETAL: Has right lower extremity edema 1+. Trace pitting edema of left leg. NEURO: No focal or lateralizing signs. Cranial nerves II through XII grossly within normal limits. PSYCH: Appropriate affect. Alert and oriented to person, place, and time. LABS: Sodium 139. Chloride low at 97. BUN is now improved down to 1.06. Glucose 106. AST elevated at 88. LDL elevated at 194. ASSESSMENT: 1. Morbid obesity due to excess calories. 2. Body mass index reduced from 54.3 down to 51.9. 3. Status post sleeve gastrectomy. 4. History of neuropathy. 5. History of bilateral lower extremity edema. 6. Clinical history consistent with gout. 7. History of renal insufficiency, improved. 8. Elevated AST, ALT. 9. Gastroesophageal reflux disease, stable. PLAN: 1. Recommend referral to a registered nurse bone marrow transplant as he has multiple arthritic problems. 2. I represcribed his Lyrica. This may need prior authorization. 3. His liver enzymes are expectantly to be elevated and he just recently had his procedure. 4. Prior to his procedure, he did demonstrate findings consistent with renal insufficiency, which is now moderately improved. 5. Recommend follow-up in one week. 6. Goal protein intake advised for over 75 grams daily.
== END | disposition home or self-care (01) ==
LOC: BARWHC3 10:12
PROVIDERS: ATTEND Surgery Plastic and Reconstructive Surgery
DX: Z48.815 Encounter for surgical aftercare following surgery on the digestive system (principal); Z98.84 Bariatric surgery status; E66.01 Morbid (severe) obesity due to excess calories; Z68.43 Body mass index [BMI] 50.0-59.9, adult; G62.9 Polyneuropathy, unspecified; R60.0 Localized edema; N28.9 Disorder of kidney and ureter, unspecified; R79.89 Other specified abnormal findings of blood chemistry; K21.9 Gastro-esophageal reflux disease without esophagitis
CPT/HCPCS: 36415; 80053; 99211

== ENCOUNTER → 2016-04-15 | Outpatient (CLI) | payer BC ==
[2016-04-15 14:14] VITALS: BMI 51.3
--- NOTE | 2016-05-24 19:21 | P.PN ---
Progress Note - Text DATE OF SERVICE: 04/15/2016 CHIEF COMPLAINT: Follow-up sleeve gastrectomy. HISTORY OF PRESENT ILLNESS: Agnieszka Marquez is a 55-year-old gentleman who is status post sleeve gastrectomy on 04/06/2016. He is now postop day #9. No reports of nausea and vomiting. His main doing concern includes bilateral foot and ankle pain. As a result his foot pain he has trouble with walking. He denies any gastroesophageal reflux disease. No reports of epigastric abdominal pain. At his height of 6 feet 1/4 inch his ideal body weight is 183 pounds. His highest weight was 403 pounds. Today he comes in weighing 371 pounds. Body mass index is reduced from 54.3 down to 51. He has lost 24 pounds in less than a month. Percent excess weight loss is 11%. He has actually lost 6 pounds in barely one week. PHYSICAL EXAM: VITAL SIGNS: Afebrile and vital signs are stable. ABDOMEN: Soft and nondistended. Incisions are intact. No signs of infection or cellulitis. MUSCULOSKELETAL: 1+ bilateral edema. GENERAL: Well-developed male in no acute distress. HEENT: No scleral icterus. Extraocular movements grossly intact. Moist mucosa. NECK: Supple without lymphadenopathy. CHEST: Nonlabored respirations with equal bilateral excursions. CARDIOVASCULAR: Regular rate and rhythm. NEURO: No focal or lateralizing signs. Cranial nerves II through XII grossly within normal limits. PSYCH: Appropriate affect. Alert and oriented to person, place, and time. LABS: No new labs at this time. ASSESSMENT: 1. Morbid obesity due to excess calories. 2. Body mass index reduced from 54.3 down to 51. 3. Status post sleeve gastrectomy. 4. History of bilateral extremity neuropathy. PLAN: 1. With the severity of his bilateral foot and ankle pain, this limits his overall ambulation and I have recommended evaluation with steam pressure chamber operator. 2. He reports in total losing almost 40 pounds as he has weighed more in the past. 3. In the interim, recommend goal protein intake of over 90 grams daily. 4. Recommend follow-up evaluation in approximately one month postop. 5. Will need a repeat bariatric panel again in one month postop.
== END | disposition home or self-care (01) ==
LOC: BARWHC3 13:17
PROVIDERS: ATTEND Surgery Plastic and Reconstructive Surgery
DX: Z71.3 Dietary counseling and surveillance (principal); E66.01 Morbid (severe) obesity due to excess calories; M06.9 Rheumatoid arthritis, unspecified; Z68.43 Body mass index [BMI] 50.0-59.9, adult
CPT/HCPCS: 99211

== ENCOUNTER → 2017-02-11 | Outpatient (CLI) | payer BC ==
[2017-02-11 12:39] VITALS: BP 116/87; PULSE 87; RESP 16; TEMP 98.2; BMI 41.1
[2017-02-11 13:13] LABS: HCT 44.1 % (39.0-53.0); HGB 14.4 gm/dL (13.0-17.5); MCH 32.1 pg (25.0-35.0); MCHC 32.6 g/dL (31.0-37.0); MCV 98.3 fL (80.0-100.0); Mean Platelet Volume 6.6; Platelet Count 334 k/uL (150-450); RBC 4.48 m/uL (4.30-5.90); RDW 13.3 % (11.5-15.5); WBC 8.7 k/uL (3.8-10.6)
[2017-02-11 13:19] LABS: Partial Thromboplastin Time 22.4 sec (22.0-30.0); Prothrombin Time 10.1 sec (9.0-12.0)
[2017-02-11 13:36] LABS: ALT 44 U/L (21-72); AST 23 U/L (17-59); Albumin 3.9 g/dL (3.5-5.0); Alkaline Phosphatase 80 U/L (38-126); Anion Gap 9 mmol/L; Blood Urea Nitrogen 20 mg/dL (9-20); Calcium 10.1 mg/dL (8.4-10.2); Carbon Dioxide 28 mmol/L (22-30); Chloride 103 mmol/L (98-107); Cholesterol 195 mg/dL (<200); Glucose 96 mg/dL (74-99); HDL Cholesterol 44 mg/dL (40-60); LDL Cholesterol,Calculated 125 mg/dL (0-99); Magnesium 1.9 mg/dL (1.6-2.3); Phosphorus 3.7 mg/dL (2.5-4.5); Potassium 4.1 mmol/L (3.5-5.1); Sodium 140 mmol/L (137-145); Total Bilirubin 0.9 mg/dL (0.2-1.3); Total Protein 6.9 g/dL (6.3-8.2); Triglycerides 130 mg/dL (<150)
[2017-02-11 18:35] LABS: Iron Saturation 40.93 (15.00-50.00)
[2017-02-11 18:44] LABS: Vitamin D 25 Hydroxy 35.2 ng/mL (30.0-100.0)
[2017-02-11 18:56] LABS: Folate, Serum 17.5 ng/mL
[2017-02-11 20:33] LABS: Parathyroid Hormone Intact 46.8 pg/mL (14.0-72.0)
[2017-02-11 22:29] LABS: Hemoglobin A1C 5.8 % (4.0-6.0)
[2017-02-12 13:27] LABS: Zinc, Serum 90 ug/dL (60-130)
[2017-02-15 06:33] LABS: Vitamin B1 61 ug/L (38-122)
[2017-02-15 09:57] LABS: Vitamin A 61 ug/dL (38-106)
[2017-02-16 18:13] LABS: Selenium 171 mcg/L (63-160)
--- NOTE | 2017-03-30 07:41 | P.PN ---
Subjective Progress Note Date: 02/11/17 DATE OF SERVICE: 02/11/2017 CHIEF COMPLAINT: Follow-up sleeve gastrectomy. HISTORY OF PRESENT ILLNESS: Agnieszka Marquez is a 56-year-old gentleman status post sleeve gastrectomy April 2016. At his height of 6 feet and 1/4 inch he came in weighing 408 pounds. Body mass index was 55.1. Today he comes in weighing 305 pounds. He has lost 103 pounds. Body mass index reduced to 41.2. Percent excess weight loss is 44% after 10 months. He has lost 73 pounds in 10 months. His personal goal is get down to 255 pounds. His ideal body weight is 183 pounds. He is 122 pounds overweight. He still has heartburn with spicy foods. He ran out of his omeprazole. He reports food specially bread getting stuck. He reports intermittent epigastric abdominal pain. He still reports neuropathy of the feet. Separately, he reports itching of the pannus. His blood pressure is now controlled from 2 medications which initially went down to 0. He is now back on one blood pressure medication. Denies any lower back pain. His hip pain and knee pain has resolved. He is off his CPAP machine. His snoring has resolved. PAST MEDICAL HISTORY: 1. Morbid obesity. 2. Hypertension. 3. Neuropathy. 4. Gastroesophageal reflux disease. 5. Obstructive sleep apnea. 6. Bilateral lower extremity edema. 7. Osteoarthritis of the lower back. PAST SURGICAL HISTORY: 1. Right knee arthroscopy. 2. Upper endoscopy. MEDICATIONS: 1. Norvasc. 2. Lyrica. 3. Protonix. ALLERGIES: Denies. SOCIAL HISTORY: Lifelong nontobacco user. Prior history of alcoholism. FAMILY HISTORY: Pertinent for morbid obesity. REVIEW OF SYSTEMS: CONSTITUTIONAL: At his height of 6 feet and 1/4 inch he came in weighing 408 pounds. Body mass index was 55.1. Today he comes in weighing 305 pounds. He has lost 103 pounds. Body mass index reduced to 41.2. Percent excess weight loss is 46% after 10 months. He has lost 73 pounds in 10 months. His personal goal is get down to 255 pounds. His ideal body weight is 183 pounds. He is 122 pounds overweight. NEURO: No reports of stroke or seizure disorder. He has bilateral neuropathy. GASTROINTESTINAL: History of gastroesophageal reflux. No dumping syndrome. HEENT: No reports of troubles with vision or hearing. No reports of dysphagia. No reports of diabetes. No reports of thyroid disorder. RESPIRATORY: History of obstructive sleep apnea. No recent asthma. CARDIOVASCULAR: History of hypertension. He has history of hypercholesterolemia. MUSCULOSKELETAL: Osteoarthritis of the lower back and legs. PSYCH: No reports of depression or suicidal ideation. HEMATOLOGIC: No reports of easy bruising or bleeding. SKIN: History of panniculitis. PHYSICAL EXAM: VITAL SIGNS: 6 foot and 1/4 inch, 305 pounds. Body mass index 41.2. Vital Signs Temp 98.2 F 02/11/17 12:36 Pulse 87 02/11/17 12:36 Resp 16 02/11/17 12:36 BP 116/87 02/11/17 12:36 Pulse Ox GENERAL: Well-developed male in no acute distress. HEENT: No scleral icterus. Extraocular movements grossly intact. Moist mucosa. NECK: Supple without lymphadenopathy. CHEST: Nonlabored respirations with equal bilateral excursions. CARDIOVASCULAR: Regular rate and rhythm. ABDOMEN: Soft, nontender, nondistended. MUSCULOSKELETAL: No clubbing cyanosis or edema. NEURO: No focal or lateralizing signs. Cranial nerves II through XII grossly within normal limits. PSYCH: Appropriate affect. Alert and oriented to person, place, and time. SKIN: Well perfused. Good skin turgor. ASSESSMENT: 1. Morbid obesity due to excess calories. 2. Body mass index of 55.1 down to 41.2 3. Status post sleeve gastrectomy. 4. Bilateral lower extremity neuropathy. 5. Obstructive sleep apnea, resolved. 6. Hypertension. 7. Gastroesophageal reflux disease. 8. Dietary counseling. PLAN: 1. I've recommended maintaining 90 g daily to help with additional weight loss. 2. Recommend bariatric lab panel. 3. His personal goal is to get down to 255 pounds. Recommend increase exercise. 4. Recommend follow-up 1 year post procedure, April 2017. LABS: Laboratory Last Values WBC 8.7 k/uL (3.8-10.6) 02/11/17 12:22 RBC 4.48 m/uL (4.30-5.90) 02/11/17 12:22 Hgb 14.4 gm/dL (13.0-17.5) 02/11/17 12:22 Hct 44.1 % (39.0-53.0) 02/11/17 12:22 MCV 98.3 fL (80.0-100.0) 02/11/17 12:22 MCH 32.1 pg (25.0-35.0) 02/11/17 12:22 MCHC 32.6 g/dL (31.0-37.0) 02/11/17 12:22 RDW 13.3 % (11.5-15.5) 02/11/17 12:22 Plt Count 334 k/uL (150-450) 02/11/17 12:22 PT 10.1 sec (9.0-12.0) 02/11/17 12:22 INR 1.0 (<1.2) 02/11/17 12:22 APTT 22.4 sec (22.0-30.0) 02/11/17 12:22 Sodium 140 mmol/L (137-145) 02/11/17 12:22 Potassium 4.1 mmol/L (3.5-5.1) 02/11/17 12:22 Chloride 103 mmol/L (98-107) 02/11/17 12:22 Carbon Dioxide 28 mmol/L (22-30) 02/11/17 12:22 Anion Gap 9 mmol/L 02/11/17 12:22 BUN 20 mg/dL (9-20) 02/11/17 12:22 Creatinine 1.00 mg/dL (0.66-1.25) 02/11/17 12:22 Est GFR (MDRD) Af Amer >60 (>60 ml/min/1.73 sqM) 02/11/17 12:22 Est GFR (MDRD) Non-Af >60 (>60 ml/min/1.73 sqM) 02/11/17 12:22 Glucose 96 mg/dL (74-99) 02/11/17 12:[address] Glu mg/dL 120 02/11/17 12:22 Hemoglobin A1c 5.8 % (4.0-6.0) 02/11/17 12:22 Calcium 10.1 mg/dL (8.4-10.2) 02/11/17 12:22 Phosphorus 3.7 mg/dL (2.5-4.5) 02/11/17 12:22 Magnesium 1.9 mg/dL (1.6-2.3) 02/11/17 12:22 Iron 115 ug/dL (65-175) 02/11/17 12:22 TIBC 281 ug/dL (228-460) 02/11/17 12:22 Iron Saturation 40.93 (15.00-50.00) 02/11/17 12:22 Ferritin 592.4 ng/mL (22.0-322.0) H 02/11/17 12:22 Total Bilirubin 0.9 mg/dL (0.2-1.3) 02/11/17 12:22 AST 23 U/L (17-59) 02/11/17 12:22 ALT 44 U/L (21-72) 02/11/17 12:22 Alkaline Phosphatase 80 U/L (38-126) 02/11/17 12:22 Total Protein 6.9 g/dL (6.3-8.2) 02/11/17 12:22 Albumin 3.9 g/dL (3.5-5.0) 02/11/17 12:22 Prealbumin 31.0 mg/dL (18.0-42.0) 02/11/17 12:22 Triglycerides 130 mg/dL (<150) 02/11/17 12:22 Cholesterol 195 mg/dL (<200) 02/11/17 12:22 LDL Cholesterol, Calc 125 mg/dL (0-99) H 02/11/17 12:22 HDL Cholesterol 44 mg/dL (40-60) 02/11/17 12:22 Vitamin A 61 ug/dL (38-106) 02/11/17 12:22 Vitamin B1 61 ug/L (38-122) 02/11/17 12:22 Vitamin B12 842.0 pg/mL (200.0-944.0) 02/11/17 12:22 Vitamin D 25-Hydroxy 35.2 ng/mL (30.0-100.0) 02/11/17 12:22 Folate 17.5 ng/mL 02/11/17 12:22 TSH 1.420 mIU/L (0.465-4.680) 02/11/17 12:22 PTH Intact 46.8 pg/mL (14.0-72.0) 02/11/17 12:22 Copper 1218 ug/L (665-1480) 02/11/17 12:22 Selenium 171 mcg/L (63-160) H 02/11/17 12:22 Zinc 90 ug/dL (60-130) 02/11/17 12:22 Sodium is elevated. Ferritin is elevated. Recommend discontinue source of additional iron. Objective - Labs CBC & Chem 7: 02/11/17 12:22 02/11/17 12:22
== END | disposition home or self-care (01) ==
LOC: BARWHC3 12:32
PROVIDERS: ATTEND Surgery Plastic and Reconstructive Surgery
DX: Z48.815 Encounter for surgical aftercare following surgery on the digestive system (principal); E66.01 Morbid (severe) obesity due to excess calories; G57.93 Unspecified mononeuropathy of bilateral lower limbs; I10 Essential (primary) hypertension; K21.9 Gastro-esophageal reflux disease without esophagitis; E21.1 Secondary hyperparathyroidism, not elsewhere classified; E89.1 Postprocedural hypoinsulinemia; D50.9 Iron deficiency anemia, unspecified; K90.9 Intestinal malabsorption, unspecified; E55.9 Vitamin D deficiency, unspecified; K76.9 Liver disease, unspecified; N19 Unspecified kidney failure; K50.90 Crohn's disease, unspecified, without complications; Z68.41 Body mass index [BMI] 40.0-44.9, adult; Z71.3 Dietary counseling and surveillance; Z79.899 Other long term (current) drug therapy; Z98.84 Bariatric surgery status
CPT/HCPCS: 80053; 80061; 82306; 82525; 82607; 82728; 82746; 83036; 83540; 83550; 83735; 83970; 84100; 84134; 84255; 84425; 84443; 84590; 84630; 85027; 85610; 85730; 97803; 99211